=== PATIENT | female | born 1945 | race Caucasian/White ===

== ENCOUNTER 2021-12-04 09:31 | Outpatient (CLI) | payer MEDICARE, BC | END 2021-12-04 09:32 | disposition home or self-care (01) | LOC: RAD 09:31 | PROVIDERS: ATTEND Internal Medicine Critical Care Medicine | DX: R06.00 Dyspnea, unspecified (principal) | CPT/HCPCS: 71046 ==

== ENCOUNTER 2022-03-15 10:03 | Outpatient (CLI) | payer MEDICARE, BC | END 2022-03-15 10:04 | disposition home or self-care (01) | LOC: BICRAD 10:03 | PROVIDERS: ATTEND Family Medicine | DX: S32.028D Other fracture of second lumbar vertebra, subsequent encounter for fracture with routine healing (principal) | CPT/HCPCS: 72100 ==

== ENCOUNTER 2022-04-16 12:12 | Outpatient (CLI) | payer MEDICARE, BC | END 2022-04-16 12:13 | disposition home or self-care (01) | LOC: BICRAD 12:12 | PROVIDERS: ATTEND Family Medicine | DX: S32.029A Unspecified fracture of second lumbar vertebra, initial encounter for closed fracture (principal) | CPT/HCPCS: 72100 ==